=== PATIENT | male | born 1965 | race Hispanic/Latino ===

== ENCOUNTER 2018-10-10 07:30 | Emergency (ER) | payer SELFPAY ==
[2018-10-10 07:31] VITALS: BMI 29.0
[2018-10-10 07:33] VITALS: TEMP 98
--- NOTE | 2018-10-10 08:11 | C.PDOC ---
History Of Present Illness 53 years old male presents to ED for complaints of right ear pain and pressure that began 2 days ago. Denies fever, or any other complaints. Time Seen by Provider: 10/10/18 07:42 Chief Complaint (Nursing): ENT Problem History Per: Patient History/Exam Limitations: None Onset/Duration Of Symptoms: Hrs Current Symptoms Are (Timing): Still Present Anticoagulant/Antiplatlet Use?: No Recent Aspirin Use: No Past Medical History Reviewed: Historical Data, Nursing Documentation, Vital Signs Vital Signs: Last Vital Signs Temp 98 F 10/10/18 07:31 Pulse 80 10/10/18 07:31 Resp 20 10/10/18 07:31 BP 126/81 10/10/18 07:31 Pulse Ox 98 10/10/18 07:31 - Medical History PMH: Diabetes ((+)Insulin taking diabetic) - [facility] Procedures INJECT/INFUSE NEC (06/19/13) Family History: States: Unknown Family Hx - Social History Hx Alcohol Use: No Hx Substance Use: No Review Of Systems Except As Marked, All Systems Reviewed And Found Negative. Constitutional: Negative for: Fever, Chills ENT: Positive for: Ear Pain (Right ear) Gastrointestinal: Negative for: Nausea, Vomiting, Diarrhea Skin: Negative for: Rash Neurological: Negative for: Weakness, Numbness Physical Exam - Physical Exam Appears: Non-toxic, No Acute Distress Skin: Normal Color, Warm, Dry Head: Atraumatic, Normacephalic Eye(s): bilateral: Normal Inspection, PERRL, EOMI Ear(s): Left: Normal, Right: Other (Deep dark/hard cerumen impaction) Oral Mucosa: Moist Neck: Normal ROM, Supple Lymphatic: No Adenopathy Neurological/Psych: Oriented x3, Normal Speech Gait: Steady ED Course And Treatment O2 Sat by Pulse Oximetry: 98 (RA) Pulse Ox Interpretation: Normal Progress Note: Administered Motrin for pain as per patient's request. Prescribed Debrox for 2-3 days. Advised to follow up with ENT. Patient is in agreement. Patient has no other complaints at this time. Patient is stable for discharge and will be discharged. Disposition - Disposition Referrals: Figueroa Kingsley MD [Staff Provider] - Disposition: HOME/ ROUTINE Disposition Time: 08:09 Condition: STABLE Additional Instructions: Follow up with ENT specialist within 2-3 days. Return to ED if feel worse. Prescriptions: Carbamide Peroxide [Debrox 15 Ml] 3 drop OT QID #1 bottle Ibuprofen [Motrin Tab] 600 mg PO Q8 #30 tab Instructions: Ear Wax Impaction (DC) Forms: [facility] ??? 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 - Scribe Statement The provider has reviewed the documentation as recorded by the Scribann Geronimo All medical record entries made by the Luizibann were at my direction and personally dictated by me. I have reviewed the chart and agree that the record accurately reflects my personal performance of the history, physical exam, medical decision making, and the department course for this patient. I have also personally directed, reviewed, and agree with the discharge instructions and disposition.
[2018-10-10 08:23] VITALS: BP 118/70; PULSE 72; RESP 18
[2018-10-10 09:31] VITALS: O2SAT 98
== END 2018-10-10 08:22 | disposition home or self-care (01) ==
LOC: C.ER 07:30
DX: H61.21 Impacted cerumen, right ear (principal)